=== PATIENT | female | born 1990 ===

== ENCOUNTER 2019-08-12 07:30 | Outpatient (RCR) | payer OTHER, SELFPAY ==
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
--- NOTE | 2019-08-14 10:12 | PT.OPPOC ---
Current Diagnoses Myalgia, other site (08/12/19) Mixed incontinence (08/12/19) Vaginismus (08/12/19) Visit Care Team Role Provider Type Landen Paul MD Attending Provider Non-Staff Specialty: WAITER/WAITRESS FORMAL Address: [address] [place] [address], [id number] Email: [email or web address] Plan Of Care PT-OP-T Assessment and Plan Start: 02/28/19 17:04 Freq: Status: Active Protocol: Document 08/12/19 07:30 AMB (Rec: 08/14/19 09:01 AMB [email or web address]) Physical Therapy Assessment Goals Two Impairment incontinence Short Term Goal (STG) Ruby will no longer experience large leaks where her entire bladder empties. STG Duration MET Relocation Director Goal (LTG) Ruby will be able to lift 20# to lift her son and perform her work tasks without leaking urine. 08/12- not yet met LTG Duration 10 weeks One Impairment pain Short Term Goal (STG) Ruby will tolerate inserting an xtrasmall dilator without pain. 08/12: not yet met STG Duration 5 weeks Correction Goal (LTG) Ruby will tolerate the sexual activity of her choice without pelvic pain. 08/12: not yet met LTG Duration 10 weeks Assessment Summary Assessment Worked with biofeedback today, and Ruby did well with it. Continues to have painful intercourse, but not especially high tone on biofeedback. Pt's biggest goal is to be able to move without leaking. As she has not had many appointments yet, she will benefit from continued PT focusing on improving her pelvic floor stability with continued monitorying on her ability to relax pelvic floor. Physical Therapy Plan Frequency and Duration Frequency of Treatment 1x/Week Duration of Treatment 12 weeks Plan of Care Start Date 08/12/19 Plan of Care End Date 11/04/19 Therapeutic Interventions Therapeutic Interventions Home Exercise Program,Manual Therapy,Neuromuscular Re- education,Self-Care/Home Management,Soft Tissue Mobilization,Therapeutic Activities,Therapeutic Exercises Modalities Biofeedback,Electric Stimulation,Hot Packs Next Visit Focus/Plan Next Note Type Treatment Note Next Visit Plan Continue with biofeedback, and progress into seated, standing, adding in stabilization with movement as tolerated. Plan of Care Dates Plan of Care Start Date 08/12/19 Plan of Care End Date 11/04/19
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
== END 2019-09-19 09:47 ==
LOC: PHYS 07:30
PROVIDERS: Visit Provider Obstetrics & Gynecology
DX: N39.46 Mixed incontinence (principal); M79.18 Myalgia, other site; N94.2 Vaginismus
CPT/HCPCS: 97110; 97112; 97140; 97162